=== PATIENT | female | born 1960 | race Two or more races ===

== ENCOUNTER 2022-03-20 07:07 | Outpatient (CLI) | payer OTHER | END 2022-03-20 07:13 | disposition home or self-care (01) | LOC: NUCLEAR 07:07 | PROVIDERS: ATTEND Physical Medicine & Rehabilitation | DX: M24.542 Contracture, left hand (principal) | CPT/HCPCS: 78315; A9503 ==

== ENCOUNTER 2022-07-14 13:04 | Inpatient (IN) | payer OTHER ==
[~2022-07-14] VITALS: Ht 160 cm; Wt 40.8 kg
--- NOTE | 2022-07-14 13:23 | NUR ---
PTE REFIERE QUE TIENE ULCERA EN AMBOS PIES
--- NOTE | 2022-07-14 14:15 | NUR ---
PTE ALERTA Y ORIENTADA X3 EVALUADA POR DOCTORMai SIMMONS. SE ORIENTA A PTE SOBRE TX MEDICO LA MISMA REFIERE ENTENDER. SE DORINDA MUESTRAS DE ARY, SE ADMINISTRAN MEDICAMENTOS Y SE CANALIZA CON ANGIO #22 EN BRAZO DERECHO BAJO MEDIDAS ASEPTICAS POR ORDEN MEDICA. PTE EN ESPERA DE EVALUACION POR SKIN TEAM.
--- NOTE | 2022-07-14 15:37 | NUR ---
SE RECIBE PACIENTE DEL TURNO ANTERIOR LA MISMA SE ENCUENTRA ALERTA Y ORIENTADA X3, SE LE ORIENTA A PACIENTE SOBRE CONTINUIDAD DE TRATAMIENTO Y VERBALIZA ENTENDER. SE OBSERVA PACIENTE RECIBIENDO IV FLUIDS ABBY ORDEN. PENDINTE COLECTA DE U/A. PACIENTE CON ENVASE. AL MOMENTO DE JAKE PERSONAL DE SKIN TEAM LE REALIZA EVALUACION PENDIENTE.
--- NOTE | 2022-07-14 15:46 | NUR ---
PERSONAL DE SKIN TEAM MS KRYSTAL LE REALIZA CULTIVOS DE ULCERA. AL MOMENTO PACIENTE NO SE ENCUENTRA ADMITIDA. SE LLAMA A PERSONAL DE LABORATORIO Y MR RECINOS ME INDICA QUE MR SALTER LE INDICA QUE LOS CULTIVOS JAKUB ENVIADOS MISCELANOS Y QUE CUANDO LA PACIENTE FABRIZIO ADMITIDA SE ENTRE ORDEN MEDICA PARA QU LOS MISMOS JAKUB PROCESADOS.
== END 2022-07-19 13:52 | disposition left against medical advice (07) | DRG 638 ==
LOC: ER 13:04 → MEDJ 20:31
PROVIDERS: ADMIT Internal Medicine; ATTEND Internal Medicine
PROC: 02HV33Z Insertion of Infusion Device into Superior Vena Cava, Percutaneous Approach (ICD-10-PCS; principal; 2022-07-15)
PROC: BQ3DZZZ Magnetic Resonance Imaging (MRI) of Right Lower Leg (ICD-10-PCS; 2022-07-16)
PROC: BW28YZZ Computerized Tomography (CT Scan) of Head using Other Contrast (ICD-10-PCS; 2022-07-17)
PROC: 4A12X4Z Monitoring of Cardiac Electrical Activity, External Approach (ICD-10-PCS; 2022-07-18)
DX: E11.621 Type 2 diabetes mellitus with foot ulcer (principal); L97.419 Non-pressure chronic ulcer of right heel and midfoot with unspecified severity; L08.9 Local infection of the skin and subcutaneous tissue, unspecified; N17.9 Acute kidney failure, unspecified; E86.0 Dehydration; Z79.4 Long term (current) use of insulin; Z74.01 Bed confinement status; E03.9 Hypothyroidism, unspecified; D64.9 Anemia, unspecified; B96.5 Pseudomonas (aeruginosa) (mallei) (pseudomallei) as the cause of diseases classified elsewhere; B95.62 Methicillin resistant Staphylococcus aureus infection as the cause of diseases classified elsewhere; I25.10 Atherosclerotic heart disease of native coronary artery without angina pectoris; R41.82 Altered mental status, unspecified; E11.65 Type 2 diabetes mellitus with hyperglycemia; I11.9 Hypertensive heart disease without heart failure; I73.9 Peripheral vascular disease, unspecified; E78.5 Hyperlipidemia, unspecified; F12.20 Cannabis dependence, uncomplicated; F32.9 Major depressive disorder, single episode, unspecified
CPT/HCPCS: 73722